=== PATIENT | male | born 1965 | race Caucasian/White ===

== ENCOUNTER 2016-07-28 07:15 | Day surgery (SDC) | payer BC ==
[~2016-07-28 07:15] MED LIST: Bacitracin Oint 1 GM U/D Packet ONE; Bupivacaine 0.5%/EPINEPHrine 1:200,000 50 ML MDV ONE; Lidocaine 1% 50 ML MDV ONE; Mineral Oil 10 ML Bottle ONE
[2016-07-28] MEDS ORDERED: Sodium Chloride 0.9% 1,000 ML IV SCH (07:45)
[2016-07-28] MEDS ORDERED: ceFAZolin 2 GM in Sodium Chloride 0.9% 100 ML IV ONE (08:30)
[2016-07-28] MEDS ORDERED: metroNIDAZOLE/Normal Saline 500 MG in Premix Bag 1 BAG IV ONE (08:30)
[2016-07-28] MEDS ORDERED: ceFAZolin 2 GM in Sodium Chloride 0.9% 50 ML IV ONE (08:30)
[2016-07-28] MEDS ORDERED: Lidocaine 1% with EPINEPHrine 1:200,000 30 ML SDV ONE (09:00)
[2016-07-28] MEDS ORDERED: Rocuronium 50 MG/5 ML Vial ONE (09:12)
[2016-07-28] MEDS ORDERED: Neostigmine Methylsulfate 1 MG/ML 5 ML Syringe ONE (09:12)
[2016-07-28] MEDS ORDERED: Succinylcholine/Normal Saline 200 MG/10 ML Syringe ONE (09:12)
[2016-07-28] MEDS ORDERED: Dexamethasone 4 MG/ML SDV ONE (09:12)
[2016-07-28] MEDS ORDERED: Propofol 200 MG/20 ML SDV ONE (09:12)
[2016-07-28] MEDS ORDERED: fentaNYL 250 MCG/5 ML SDV ONE ×2 (09:12→09:34)
[2016-07-28] MEDS ORDERED: Ondansetron 4 MG/2 ML SDV ONE (09:12)
[2016-07-28] MEDS ORDERED: Bacitracin Oint 1 GM U/D Packet ONE (10:06)
[2016-07-28] MEDS ORDERED: Ketorolac 60 MG/2 ML SDV ONE (10:19)
[2016-07-28 12:09] VITALS: BP 128/77
--- NOTE | 2016-07-31 07:47 | OR ---
DATE OF PROCEDURE: 07/28/2016 PROCEDURES: 1. Surgical preparation of donor site by escharotomy ([id number]). 2. Split-thickness skin graft, left thigh, (44415). Grafting site was 5.6 x 3.5 cm. 3. Wound VAC placement ([id number]). COMPLICATIONS: None. GANG BOSS: None. PREOPERATIVE DIAGNOSIS: Nonhealing chronic wound, left thigh. POSTOPERATIVE DIAGNOSIS: Nonhealing chronic wound, left thigh. RISKS: Risks, benefits, alternatives, and limitations including, but not limited to infection, bleeding, and requirement for reoperation along with chronic pain and scar formation were explained to the patient, and they wished to proceed. DONOR SITE: Left thigh. RECIPIENT SITE: Left thigh. PROCEDURE IN DETAIL: The patient was placed in supine position. The left leg was prepped and draped. A Weck blade set to 8000s was used to remove the eschar. This was multiple passes. Lidocaine with epinephrine-soaked gauze was then placed on this to control hemostasis. Of note, prior to skin graft final placement, this hemostatic bed was reinspected and minimal electrocautery was used to control complete hemostasis. The graft site would be also from the left thigh. This was prepped in standard fashion using mineral oil. The medium-sized dermatome harvester was selected and set to 12,000th thickness. This was verified both by the gauge and using a 15-blade knife for thickness. The harvester was powered up prior to touching the patient's skin. The harvest size was approximately 4 cm x 2 cm, and this was lift off the skin prior to termination of the device. Lidocaine with epinephrine was placed on the thigh donor site. This was then placed within the mesh itself, and this was meshed in a 1.5:1 ratio. Dissolving chromic sutures were placed to tack the graft into place. A black sponge was then placed over Adaptic with bacitracin on it to facilitate the graft adhesion. This was covered with track pad and standard plastic sheeting, and hooked to -75 mmHg pressure. The wound VAC was then secured. A bacitracin-coated Adaptic was placed at the donor site. The patient tolerated the procedure well. Jose Mena MD /[id number]
== END 2016-07-28 12:00 | disposition home or self-care (01) ==
LOC: JP.SDS 07:15
PROVIDERS: ATTEND Surgery
PROC: 0HBJXZZ Excision of Left Upper Leg Skin, External Approach (ICD-10-PCS; principal; 2016-07-28)
PROC: 2W1PX6Z Compression of Left Upper Leg using Pressure Dressing (ICD-10-PCS; 2016-07-28)
DX: S71.102A Unspecified open wound, left thigh, initial encounter (principal)
CPT/HCPCS: 15002; 15100; 97605; C1762; J0690; J1100; J1885; J2405; J2704; J3010; J7050